=== PATIENT | female | born 2000 | race Caucasian/White ===

== ENCOUNTER → 2020-04-08 14:20 | Outpatient (CLI) | payer MEDICAID, SELFPAY ==
[2020-04-10 09:11] LABS: Covid-19 Nasal PCR Sendout UK Not Detected
== END ==
PROVIDERS: Visit Provider Nurse Practitioner
DX: Z03.818 Encounter for observation for suspected exposure to other biological agents ruled out (principal)
CPT/HCPCS: U0003